=== PATIENT | female | born 2005 | race Caucasian/White ===

== ENCOUNTER 2025-03-02 19:38 | Emergency (ER) | payer OTHER ==
[~2025-03-02] VITALS: Ht 149.9 cm; Wt 68.2 kg
[2025-03-02 20:20] VITALS: BP 112/74; PULSE 82; RESP 17; TEMP 97.5; O2SAT 98
== END 2025-03-03 00:51 | disposition left against medical advice (07) ==
LOC: EMS 19:40
DX: M25.511 Pain in right shoulder (principal); R07.81 Pleurodynia; Z53.21 Procedure and treatment not carried out due to patient leaving prior to being seen by health care provider; V29.99XA Rider (driver) (passenger) of other motorcycle injured in unspecified traffic accident, initial encounter; Y93.89 Activity, other specified; Y92.89 Other specified places as the place of occurrence of the external cause; Y99.8 Other external cause status